=== PATIENT | female | born 1980 | race Caucasian/White ===

== ENCOUNTER 2016-12-23 18:49 | Inpatient (IN) | payer BC ==
[~2016-12-23] VITALS: Ht 167.6 cm; Wt 75.7 kg
[2016-12-23] MEDS ORDERED: LACTATED RINGER'S 1000 ML INJ 1,000 ML IV PRN (20:03)
--- NOTE | 2016-12-23 20:03 | PD ---
HPI Chief Complaint Rupture of membranes Date Seen: Dec 23, 2016 Time Seen: 19:57 Travel History International Travel<30 Days: No Contact w/Intl Traveler<30Days: No Known Affected Area: No History of Present Illness HPI 36-year-old who is at 41 weeks gestation comes in complaining of rupture membranes that occurred at 1645 today. She states the fluid was blood-tinged but mostly clear. Patient complains of some mild cramping but otherwise no other contractions and no vaginal bleeding. Patient states that she's had normal movement and she is group B strep positive Weeks Gestation: 41 Para: 0 : 1 History Past Medical History Medical History: Denies Significant Hx Past Surgical History Narrative Surgical Breast augmentation Family History Family History: Negative Social History Alcohol Use: No Tobacco Use: No Substance Abuse: No Allergies-Medications (Allergen,Severity, Reaction): Coded Allergies: Ciprofloxacin (Verified Allergy, Mild, 12/23/16) Review of Systems Except as stated in HPI: all other systems reviewed are Neg Physical Exam Narrative GENERAL: Well-nourished, well-developed patient. SKIN: Warm and dry. HEAD: Normocephalic and atraumatic. EYES: No scleral icterus. No injection or drainage. ENT: No nasal drainage noted. Mucous membranes pink. Airway patent. NECK: Supple, trachea midline. No JVD. CARDIOVASCULAR: Regular rate and rhythm without murmurs, gallops, or rubs. RESPIRATORY: Breath sounds equal bilaterally. No accessory muscle use. ABDOMEN/GI: Abdomen soft, non-tender, bowel sounds present, no rebound, no guarding Gravid to [39-] weeks size Fundal Height: [-] GENITOURINARY: External Genitalia: intact and normal in appearance BUS glands: [Normal-] Cervix: [-Mid position] Dilatation: [-Fingertip] Effacement: [-50] Station: [-3-] Presentation: [-Vertex] Membranes: ruptured, positive amnisure Uterine Contractions: [-] Irregular every 5-10 minutes FHT's: Category: [1-] Baseline: [-140] Reactive: [-Moderate] Variability: [Moderate-] Decels: [Absent-] EXTREMITIES: No cyanosis or edema. BACK: Nontender without obvious deformity. No CVA tenderness. NEUROLOGICAL: Awake and alert. Motor and sensory grossly within normal limits. Five out of 5 muscle strength in all muscle groups. Normal speech. Data Data Vital Signs Reviewed: Yes Orders Orders Ob (2e) Additional Admit Info (12/23/16 19:24) Group B Strep: Positive MDM Medical Record Reviewed: Yes Plan 36-year-old with premature rupture membranes and positive GBS Will start penicillin prophylaxis cytotec 25mcg Diagnosis Diagnosis: Primary Impression: Premature rupture of membranes Additional Impressions: Positive GBS test 41 weeks gestation of Katey Pierre MD Dec 23, 2016 20:03
[2016-12-23] MEDS ORDERED: OXYTOCIN 30 UNITS-500ML PREMIX 500 ML IV ONE (20:15)
[2016-12-23] MEDS ORDERED: SODIUM CHLORID 0.9% 500 ML INJ 500 ML IV PRN (20:15)
[2016-12-23] MEDS ORDERED: LIDOCAINE HCL 1% 50 ML VIAL INFIL PRN (20:15)
[2016-12-23] MEDS ORDERED: MISOPROSTOL 25 MCG SUPP VAGINAL ONE (20:15)
[2016-12-23] MEDS ORDERED: PENICILLIN G POTASSIUM INJ 5,000,000 UNITS in SODIUM CHLORIDE 0.9% INJ 100 ML IV ONE (20:15)
[2016-12-23] MEDS ORDERED: CITRIC ACID-SODIUM CITRATE LIQ 30 ML UDC PO SCH (20:15)
[2016-12-23] MEDS ORDERED: MINERAL OIL 10 ML VIAL TOPICAL PRN (20:15)
[2016-12-23] MEDS ORDERED: LIDOCAINE HCL 1% 50 ML VIAL I-DERMAL PRN (20:15)
[2016-12-23] MEDS ORDERED: SODIUM CHLOR 0.9% 1000 ML INJ 1,000 ML IV PRN (20:23)
[2016-12-23] MEDS: LACTATED RINGER'S 1000 ML INJ 1,000 ML IV SCH (20:29)
[2016-12-23 21:27] LABS: AUTOMATED NEUTROPHIL # 9.5 TH/MM3 (1.8-7.7); BASOPHIL % 0.3 % (0.0-2.0); EOSINOPHIL # 0.1 TH/MM3 (0-0.4); EOSINOPHIL % 0.5 % (0.0-4.0); HEMATOCRIT 31.7 % (35.0-46.0); HEMO FLAGS DIFF FINAL; LYMPH % 15.6 % (9.0-44.0); MEAN CELL VOLUME 91.1 FL (80.0-100.0); MEAN CORPUSCULAR HEMOGLOBIN 30.8 PG (27.0-34.0); MEAN CORPUSCULAR HGB CONC 33.9 % (32.0-36.0); MONO % 8.4 % (0.0-8.0); NEUT % 75.2 % (16.0-70.0); PLATELET COUNT 183 TH/MM3 (150-450); RED BLOOD COUNT 3.48 MIL/MM3 (4.00-5.30); RED CELL DISTRIBUTION WIDTH 15.3 % (11.6-17.2); WHITE BLOOD COUNT 12.7 TH/MM3 (4.0-11.0)
[2016-12-23 21:30] LABS: BACTERIA, URINE RARE /hpf; BLOOD, URINE NEG (NEG); COMMENT (UR) CULT NOT INDICATED; CULTURE IF INDICATED CULT NOT INDICATED; GLUCOSE,URINE NEG (NEG); KETONE, URINE NEG (NEG); MUCUS URINE FEW /lpf (OCC); NITRITE,URINE NEG (NEG); PH, URINE 6.5 (5.0-8.5); SQUAMOUS EPITHELIAL CELL URINE 1 /hpf (0-5); URINE COLOR LIGHT-YELLOW (YELLW/STRAW)
[2016-12-23 23:17] VITALS: TEMP 97.5
[2016-12-23 23:41] VITALS: BP 107/60; PULSE 60; RESP 18
[2016-12-24] VITALS (61 sets, daily range): BP systolic 92–124; BP diastolic 46–82; PULSE 47–114; RESP 16–20; TEMP 97.6–99.7; O2SAT 98–100
[2016-12-24] MEDS: PENICILLIN G POTASSIUM INJ 2,500,000 UNITS in SODIUM CHLORIDE 0.9% INJ 100 ML IV SCH ×4 (01:09→12:15)
[2016-12-24] MEDS ORDERED: OXYTOCIN 30 UNITS/NS 500ML PREMIX IV SCH (01:15)
[2016-12-24] MEDS ORDERED: ePHEDrine/NS 25 MG/5 ML SYR ONE (03:23)
[2016-12-24] MEDS ORDERED: fentaNYL 2MCG-BUPIV 0.125% INJ 100 ML ONE (03:23)
[2016-12-24] MEDS: LACTATED RINGER'S 1000 ML INJ 1,000 ML IV SCH ×2 (04:03→06:09)
[2016-12-24] MEDS ORDERED: ePHEDrine/NS 25 MG/5 ML SYR IV PRN (04:30)
[2016-12-24] MEDS ORDERED: NO SYSTEM NARCOTICS PRN (04:30)
[2016-12-24] MEDS ORDERED: fentaNYL 2MCG-BUPIV 0.125% 100 ML EPIDURAL SCH (04:30)
[2016-12-24] MEDS ORDERED: DO NOT ADMINISTER ANTICOAGULANTS PRN (04:30)
[2016-12-24] MEDS ORDERED: OXYTOCIN 30 UNITS-500ML PREMIX 500 ML IV SCH (07:45)
--- NOTE | 2016-12-24 07:45 | PD.LABORPN ---
Subjective Subjective comfortable with epidural Objective Vital Signs Vital Signs Date Time Temp Pulse Resp B/P (MAP) Pulse Ox O2 Delivery O2 Flow Rate FiO2 12/24/16 07:12 68 118/64 (82) 12/24/16 07:04 114 109/67 (81) 12/24/16 07:01 88 92/49 (63) 12/24/16 06:54 98.3 12/24/16 06:47 71 106/56 (73) 12/24/16 06:44 18 12/24/16 06:43 73 94/46 (62) 12/24/16 06:30 71 94/46 (62) 12/24/16 06:01 68 109/68 (82) 12/24/16 05:30 72 99/65 (76) 12/24/16 05:05 98.0 18 12/24/16 05:00 69 106/59 (75) 12/24/16 04:43 18 12/24/16 04:37 18 12/24/16 04:33 77 108/70 (83) 12/24/16 04:31 73 12/24/16 04:15 71 107/64 (78) 12/24/16 04:10 75 103/64 (77) 12/24/16 04:05 76 108/65 (79) 12/24/16 04:00 76 100 12/24/16 04:00 71 105/82 (90) 12/24/16 03:56 77 112/76 (88) 12/24/16 03:55 80 100 12/24/16 03:50 82 121/82 (95) 12/24/16 03:50 79 100 12/24/16 03:45 77 12/24/16 03:45 67 119/73 (88) 100 12/24/16 03:41 18 12/24/16 03:40 68 12/24/16 03:40 64 115/72 (86) 100 12/24/16 03:36 61 120/67 (84) 12/24/16 02:18 73 117/79 (92) 12/24/16 02:16 97.6 18 Objective occasional variables good BTBV 5-6/90/-1 EFW 7 pounds pelvis clinically adequate Weeks Gestation: 41 Gest Age Assessed Date: Dec 24, 2016 Gest Age Assessed Time: 07:43 Pt started active labor?: Yes Active labor start date: Dec 24, 2016 Active labor start time: 07:44 Medical induction of labor?: No Artificial rupture of membrane: No Assessment/Plan Assessment and Plan Entering active labor can augment as needed anticipate Dary Stahl MD Dec 24, 2016 07:44
[2016-12-24] MEDS ORDERED: ONDANSETRON HCL 4 MG/2 ML VIAL ONE ×2 (10:31→15:28)
[2016-12-24] MEDS ORDERED: LIDOCAINE HCL 1.5% PF SOLN 20 ML AMP ONE (12:09)
[2016-12-24] MEDS ORDERED: EPIDURAL-DIPHENHYDRAMINE HCL 50 MG/ML VIAL IV PUSH PRN (13:15)
[2016-12-24] MEDS ORDERED: EPIDURAL-NALOXONE HCL 0.4 MG/ML AMP IV PRN (13:15)
[2016-12-24] MEDS ORDERED: EPIDURAL-DIPHENHYDRAMINE HCL 50 MG CAP PO PRN (13:15)
[2016-12-24] MEDS ORDERED: EPIDURAL-DO NOT ADMINISTER ANTICOAGULANTS PRN (13:15)
[2016-12-24] MEDS ORDERED: EPIDURAL-NO SYSTEMIC NARCOTICS PRN (13:15)
--- NOTE | 2016-12-24 14:13 | PD.LABORPN ---
Subjective Subjective exhausted and nauseated Objective Vital Signs Vital Signs Date Time Temp Pulse Resp B/P (MAP) Pulse Ox O2 Delivery O2 Flow Rate FiO2 12/24/16 14:03 20 12/24/16 14:00 61 113/73 (86) 12/24/16 13:58 98.3 12/24/16 13:30 59 112/68 (83) 12/24/16 13:00 56 118/65 (82) 12/24/16 12:30 62 109/66 (80) 12/24/16 12:05 20 12/24/16 12:05 98.4 12/24/16 12:00 64 106/70 (82) 12/24/16 11:30 61 110/71 (84) 12/24/16 11:00 65 93/48 (63) 12/24/16 10:30 66 105/55 (72) 12/24/16 10:00 66 118/65 (82) 12/24/16 09:35 98.0 12/24/16 09:30 79 124/66 (85) 12/24/16 09:00 77 124/67 (86) 12/24/16 08:30 80 108/68 (81) 12/24/16 08:00 77 110/60 (77) 12/24/16 07:48 75 123/70 (87) 12/24/16 07:45 17 12/24/16 07:30 68 121/69 (86) 12/24/16 07:12 68 118/64 (82) 12/24/16 07:04 114 109/67 (81) 12/24/16 07:01 88 92/49 (63) 12/24/16 06:54 98.3 12/24/16 06:47 71 106/56 (73) 12/24/16 06:44 18 12/24/16 06:43 73 94/46 (62) 12/24/16 06:30 71 94/46 (62) Objective 80/-1 assymetric and difficult to assess position strip no with diminished variability and multiple deep decels Weeks Gestation: 41 Gest Age Assessed Date: Dec 24, 2016 Gest Age Assessed Time: 07:43 Pt started active labor?: Yes Active labor start date: Dec 24, 2016 Active labor start time: 07:44 Medical induction of labor?: No Artificial rupture of membrane: No Assessment/Plan Assessment and Plan no cervical change intolerance of contractions lack of descent now decreased BTBV changing strip from category 2 to category 3 discussed indications, procedure and risks with patient and spouse. to OR now. Dary Macario MD Dec 24, 2016 14:13
[2016-12-24] MEDS ORDERED: oxyCODONE/ACETAMINOPHEN 5 MG/325 MG TAB PO PRN ×2 (14:15)
[2016-12-24] MEDS ORDERED: ONDANSETRON HCL 4 MG/2 ML VIAL IV PUSH PRN (14:15)
[2016-12-24] MEDS ORDERED: SIMETHICONE 80 MG CHEWABLE TAB PO PRN (14:15)
[2016-12-24] MEDS ORDERED: OXYTOCIN 30 UNITS-500ML PREMIX 500 ML IV ONE (14:15)
[2016-12-24] MEDS ORDERED: ACETAMINOPHEN 1000 MG/100 ML 100 ML IV ONE (14:15)
[2016-12-24] MEDS ORDERED: SODIUM CHLORIDE 0.9% FLUSH 10 ML FLUSH IV FLUSH PRN (14:15)
[2016-12-24] MEDS ORDERED: ceFAZolin INJ 1,000 MG VIAL ONE (14:18)
[2016-12-24] MEDS ORDERED: OXYTOCIN 10 UNIT/ML AMP ONE (14:19)
[2016-12-24 15:11] LABS: BLOOD GAS BASE EXCESS -4.2 mmol/L (-2-2); BLOOD GAS O2 HGB SATURATION 61 % (90-100); CORD BLOOD GAS HCO3 20 mmol/L (21-29); CORD BLOOD GAS PCO2 35 mmHG (34-78); CORD BLOOD GAS PH 7.38 (7.14-7.42); CORD BLOOD GAS PO2 31 mmHG (3.0-40.0); DRAW SITE CORD BLOOD; STAT NO
[2016-12-24] MEDS ORDERED: OXYTOCIN 30 UNITS-500ML PREMIX 500 ML ONE (15:23)
[2016-12-24] MEDS ORDERED: MORPHINE SULFATE PF 5 MG/10 ML VIAL ONE (15:28)
--- NOTE | 2016-12-24 15:28 | PD.OP ---
Operative Report Date of Surgery: Dec 24, 2016 Preoperative Diagnosis: (1) Persistent occipitoposterior position (2) 41 weeks gestation of (3) Late deceleration of heart rate Postoperative Diagnosis: (1) Persistent occipitoposterior position (2) 41 weeks gestation of Procedure: Primary low transverse section Anesthesia: Epidural Surgeon: Dary Macario MD Hydraulic Tester(s): Cristela Child Resident Surgeon: Merari Eddy MD Operation and Findings: Preoperative Diagnosis: 1. Primary low transverse delivery 2. Persistent occipitoposterior position 3. Category II tracing with occasional late decelerations and decreasing variability 4. Intrauterine at 41-1/7 weeks gestation Postoperative Diagnosis: 1. Primary low transverse delivery 2. Persistent occipitoposterior position 3. Intrauterine at 41-1/7 weeks gestation Procedure Primary low transverse section Anesthesia Epidural Surgeon Dary Macario MD Co-Surgeon Merari Eddy MD Findings Normal female 3590g with Apgars 8 and 8. Normal fallopian tubes, normal ovaries, normal uterus. Complications None. Counts Correct Estimated Blood Loss 500mL Fluids Crystalloids. Disposition The patient tolerated procedure well, went to recovery room in good condition. Procedure in Detail After informed consent was obtained the patient was taken to the operating room where her epidural anesthesia was found to be adequate. A Crump catheter was already in place. She was then prepared and draped in the normal sterile fashion in the dorsal supine position with a leftward tilt. A Pfannenstiel/midline skin incision was then made with the scalpel and carried through to the underlying layer of fascia with bovie blunt dissection. The fascia was incised in the midline and extended laterally with the Nieto scissors. The incision was then grasped with the Sterling clamps, elevated and the underlying rectus muscles dissected off bluntly/sharply with the Nieto scissors. Attention was then turned to the inferior aspect of this incision which, in a similar fashion, was grasped, tented up with the Sterling clamps, and the rectus muscles dissected off bluntly/sharply with the Nieto scissors. The rectus muscles were then in the midline, and the peritoneum identified , tented up, and entered sharply using Nieto scissors and bluntly using manual dissection. The peritoneal incision was then extended superiorly and inferiorly with good visualization of the bladder. A bladder flap was created then the bladder blade was inserted and the lower uterine segment was incised in a transverse fashion with the scalpel. The uterine incision was then extended laterally digitally. Clear fluid was noted and the 's head was noted to be in occiput posterior presentation. The bladder blade was removed. A nuchal cord was reduced and the 's head delivered with the assistance of a Kiwi vacuum without pop-off's. The was delivered atraumatically. Cord clamping was delayed for 45 seconds with active milking of the cord, then the cord was cut and the was handed off the field to the awaiting baby nurse. The placenta was then removed, the uterus exteriorized, and cleared of all clots and debris. The uterine incision was repaired with 0 Chromic in a running fashion. A second layer of the same suture was used in an imbricating fashion to obtain excellent hemostasis. The abdominal cavity was cleaned with normal saline irrigation and a moist lap and the uterus was replaced into the abdomen. The gutters were cleared of all clots and debris and the hysterotomy site was noted to be hemostatic. The muscle was then reapproximated with 0 Vicryl and the fascia was then reapproximated with 0 Vicryl in a running fashion. The subcutaneous tissue was closed with 3-0 Plain and the skin was closed with 4-0 Monocryl in a subcuticular fashion noting excellent hemostasis. The patient tolerated the procedure well. Sponge, lap and needle counts were correct times two. The patient was taken to the recovery room in stable condition. Merari Eddy MD, R3 Dec 24, 2016 15:28
[2016-12-24] MEDS ORDERED: LACTATED RINGER'S 1000 ML INJ 1,000 ML IV SCH (19:13)
[2016-12-24] MEDS ORDERED: SODIUM CHLORIDE 0.9% FLUSH 10 ML FLUSH IV FLUSH SCH (21:00)
[2016-12-25] MEDS ORDERED: OXYTOCIN 30 UNITS-500ML PREMIX 500 ML IV PRN (00:15)
[2016-12-25 00:50] VITALS: RESP 16
[2016-12-25] MEDS: IBUPROFEN 600 MG TAB PO PRN ×3 (03:12→17:14)
[2016-12-25 03:29] VITALS: BP 95/63; PULSE 76; RESP 18; TEMP 99.2
[2016-12-25 04:25] LABS: HEMATOCRIT 28.6 % (35.0-46.0); HEMO FLAGS DIFF FINAL; MEAN CELL VOLUME 92.5 FL (80.0-100.0); MEAN CORPUSCULAR HEMOGLOBIN 30.7 PG (27.0-34.0); MEAN CORPUSCULAR HGB CONC 33.2 % (32.0-36.0); PLATELET COUNT 154 TH/MM3 (150-450); RED BLOOD COUNT 3.09 MIL/MM3 (4.00-5.30); RED CELL DISTRIBUTION WIDTH 15.6 % (11.6-17.2); WHITE BLOOD COUNT 13.5 TH/MM3 (4.0-11.0)
[2016-12-25 04:26] LABS: AUTOMATED NEUTROPHIL # 11.1 TH/MM3 (1.8-7.7); BASOPHIL # 0.1 TH/MM3 (0-0.2); BASOPHIL % 0.4 % (0.0-2.0); EOSINOPHIL % 0.2 % (0.0-4.0); LYMPH % 10.9 % (9.0-44.0); LYMPHOCYTE # 1.5 TH/MM3 (1.0-4.8); MONO % 6.2 % (0.0-8.0); NEUT % 82.3 % (16.0-70.0)
[2016-12-25 08:24] VITALS: BP 87/59; PULSE 63; RESP 16; TEMP 97.6
--- NOTE | 2016-12-25 09:45 | HHI.OB ---
Subjective Post Operative Day: 1 Remarks POD#1, stable,doing well Objective Vitals/I&O Vital Signs Date Time Temp Pulse Resp B/P (MAP) Pulse Ox O2 Delivery O2 Flow Rate FiO2 12/25/16 08:24 63 16 87/59 (68) 12/25/16 08:24 97.6 12/25/16 03:29 99.2 76 18 12/25/16 03:29 95/63 (74) 12/25/16 00:50 16 12/24/16 23:50 68 18 96/68 (77) 12/24/16 23:50 98.7 12/24/16 21:50 16 12/24/16 20:50 16 12/24/16 19:50 54 18 104/67 (79) 12/24/16 19:50 98.5 12/24/16 17:26 60 16 111/70 (84) 12/24/16 17:14 98.4 12/24/16 16:42 99.7 12/24/16 16:19 18 99 12/24/16 16:19 75 119/65 (83) 12/24/16 16:06 98 12/24/16 16:06 77 18 112/56 (74) 12/24/16 15:45 74 18 106/57 (73) 100 12/24/16 15:39 75 12/24/16 15:39 100 12/24/16 15:39 47 18 102/52 (69) 12/24/16 15:30 100/55 (70) 12/24/16 15:20 98.2 90 18 98 12/24/16 14:03 20 12/24/16 14:00 61 113/73 (86) 12/24/16 13:58 98.3 12/24/16 13:30 59 112/68 (83) 12/24/16 13:00 56 118/65 (82) 12/24/16 12:30 62 109/66 (80) 12/24/16 12:05 20 12/24/16 12:05 98.4 12/24/16 12:00 64 106/70 (82) 12/24/16 11:30 61 110/71 (84) 12/24/16 11:00 65 93/48 (63) 12/24/16 10:30 66 105/55 (72) 12/24/16 10:00 66 118/65 (82) Result Diagram: 12/25/16 0409 Objective Remarks GENERAL: Well-nourished, well-developed patient. CARDIOVASCULAR: Regular rate and rhythm without murmurs, gallops, or rubs. RESPIRATORY: Breath sounds equal bilaterally. No accessory muscle use. ABDOMEN/GI: Abdomen soft, non-tender, bowel sounds present. Incision: Clean, dry and intact. Fundus: Firm, non-tender at umbilicus. GENITOURINARY: Light to moderate bleeding. EXTREMITIES: No cyanosis or edema, non-tender, without signs of DVT. Medications and IVs Current Medications Medications (Trade) Dose Ordered Sig/Parish Route Start Time Stop Time Status Last Admin (Xylocaine 1% Inj (50 ml)) 0.1 ml UNSCH X1 PRN I-DERMAL 12/23/16 20:15 12/26/16 20:14 (Bicitra Liq) 30 ml LUNCH COUNTER MANAGER PO 12/23/16 20:15 12/27/16 20:14 (Xylocaine 1% Inj (50 ml)) 10 ml UNSCH X1 PRN INFIL 12/23/16 20:15 12/25/16 20:14 Lactated Ringer's 1,000 ml @ 100 mls/hr Q10H IV 12/24/16 19:13 12/25/16 15:12 12/24/16 20:09 Oxytocin 500 ml @ 100 mls/hr UNSCH X1 PRN IV 12/25/16 00:15 12/26/16 00:14 (NS Flush) 2 ml BID IV FLUSH 12/24/16 21:00 (NS Flush) 2 ml UNSCH PRN IV FLUSH 12/24/16 14:15 (Mylicon Chew) 80 mg QID PRN PO 12/24/16 14:15 (Motrin) 600 mg Q6H PRN PO 12/24/16 14:15 12/25/16 03:12 (Percocet 5-325 Mg) 1 tab Q4H PRN PO 12/24/16 14:15 (Percocet 5-325 Mg) 2 tab Q4H PRN PO 12/24/16 14:15 (M-M-R Ii Inj) 0.5 ml ONCE ONCE SQ 9/13/17 16:00 12/25/16 16:01 (Boostrix Inj) 0.5 ml ONCE ONCE IM 12/25/16 16:00 12/25/16 16:01 (Zofran Inj) 4 mg Q6H PRN IV PUSH 12/24/16 14:15 Miscellaneous Information NO SYSTEMIC NARCOTICS TO BE GIVEN FO... UNSCH PRN .XX 12/24/16 13:15 12/25/16 13:14 (Narcan Inj) 0.4 mg UNSCH PRN IV 12/24/16 13:15 12/25/16 13:14 (Benadryl Inj) 25 mg Q6H PRN IV PUSH 12/24/16 13:15 12/25/16 13:14 (Benadryl) 50 mg Q6H PRN PO 12/24/16 13:15 12/25/16 13:14 Miscellaneous Information ALL NURSING DEPARTMENTS UNSCH PRN .XX 12/24/16 13:15 12/25/16 13:14 Assessment/Plan Assessment and Plan POD#!, Normal post-op recovery, plan D/c day 2 or 3 Discharge Planning ROutine Attending Attestation seen by Lamin Ashford MD Dec 25, 2016 09:45
[2016-12-25] MEDS ORDERED: DIPHTH/TETANUS/ACEL PERTUSSIS (BOOSTER) 0.5 ML VIAL/PFS IM ONE (16:00)
[2016-12-25] MEDS ORDERED: MEASLES, MUMPS, RUBELLA VACCINE 0.5 ML VIAL SQ ONE (16:00)
[2016-12-25] MEDS: DOCUSATE SODIUM 50 MG/SENNA 8.6 MG TAB PO PRN (17:13)
[2016-12-25 19:50] VITALS: BP 96/68; PULSE 67; RESP 18; TEMP 98.1
[2016-12-26] MEDS: IBUPROFEN 600 MG TAB PO PRN ×3 (00:16→16:28)
[2016-12-26 03:50] VITALS: BP 109/68; PULSE 60; RESP 18; TEMP 98
[2016-12-26 08:00] VITALS: BP 113/74; PULSE 65; RESP 16; TEMP 97.6
[2016-12-26] MEDS: DOCUSATE SODIUM 50 MG/SENNA 8.6 MG TAB PO PRN (09:15)
--- NOTE | 2016-12-26 09:17 | HHI.OB ---
Subjective Post Operative Day: 2 Remarks sleeping well breast and bottle mild cramps Objective Vitals/I&O Vital Signs Date Time Temp Pulse Resp B/P (MAP) Pulse Ox O2 Delivery O2 Flow Rate FiO2 12/26/16 08:00 97.6 65 16 113/74 (87) 12/26/16 03:50 98.0 60 18 109/68 (82) 12/25/16 19:50 98.1 67 18 96/68 (77) Result Diagram: 12/25/16 0407 Objective Remarks GENERAL: Well-nourished, well-developed patient. CARDIOVASCULAR: Regular rate and rhythm without murmurs, gallops, or rubs. RESPIRATORY: Breath sounds equal bilaterally. No accessory muscle use. ABDOMEN/GI: Abdomen soft, non-tender, bowel sounds present. Incision: Clean, dry and intact. Fundus: Firm, non-tender at umbilicus. GENITOURINARY: Light to moderate bleeding. EXTREMITIES: No cyanosis or edema, non-tender, without signs of DVT. Medications and IVs Current Medications Medications (Trade) Dose Ordered Sig/Parish Route Start Time Stop Time Status Last Admin (Xylocaine 1% Inj (50 ml)) 0.1 ml UNSCH X1 PRN I-DERMAL 12/23/16 20:15 12/26/16 20:14 (Bicitra Liq) 30 ml TRAFFIC CIRCUIT ENGINEER PO 12/23/16 20:15 12/27/16 20:14 (NS Flush) 2 ml BID IV FLUSH 12/24/16 21:00 (NS Flush) 2 ml UNSCH PRN IV FLUSH 12/24/16 14:15 (Mylicon Chew) 80 mg QID PRN PO 12/24/16 14:15 (Motrin) 600 mg Q6H PRN PO 12/24/16 14:15 12/26/16 09:15 (Percocet 5-325 Mg) 1 tab Q4H PRN PO 12/24/16 14:15 (Percocet 5-325 Mg) 2 tab Q4H PRN PO 12/24/16 14:15 (Zofran Inj) 4 mg Q6H PRN IV PUSH 12/24/16 14:15 (Aida-Colace) 2 tab Q12H PRN PO 12/25/16 17:15 12/26/16 09:15 Assessment/Plan Assessment and Plan POD#m 2 plan for discharge in the morning cricumcision with family practice Discharge Planning ROutine Dary Macario MD Dec 26, 2016 09:17
[2016-12-26] MEDS ORDERED: OXYC1TAB63 PO (09:19)
--- NOTE | 2016-12-26 09:19 | HHI.DCPOC ---
Discharge Care Plan Report Symptoms to Your Doctor -Temperature above 100.5 degrees -Redness, of incision or excessive or foul smelling drainage -Unusual pain or calf pain -Increased vaginal bleeding -Painful or difficulty urinating -Feelings of extreme sadness or anxiety after 2 weeks Goals to Promote Your Health * To prevent worsening of your condition and complications * To maintain your health at the optimal level Directions to Meet Your Goals Take your medications as prescribed Follow your dietary instruction Follow activity as directed Ensure plenty of rest for recovery Drink fluids for hydration Keep your appointments as scheduled Take your immunizations and boosters as scheduled If your symptoms worsen call your PCP, if no PCP go to Urgent Care Center or Emergency Room Smoking is Dangerous to Your Health. Avoid second hand smoke Call the 24-hour crisis hotline for domestic abuse at Dary Macario MD Dec 26, 2016 09:19
[2016-12-26 20:29] VITALS: BP 114/76; PULSE 82; RESP 16; TEMP 97.8
[2016-12-27] MEDS: IBUPROFEN 600 MG TAB PO PRN ×2 (00:20→08:15)
[2016-12-27 07:35] VITALS: BP 140/80; PULSE 56; RESP 18; TEMP 97.9
[2016-12-27 07:50] VITALS: BP 121/80
--- NOTE | 2016-12-27 08:09 | HHI.OB ---
Subjective Post Operative Day: 2 Remarks doing well, pt desires discharge today Objective Vitals/I&O Vital Signs Date Time Temp Pulse Resp B/P (MAP) Pulse Ox O2 Delivery O2 Flow Rate FiO2 12/26/16 20:29 97.8 82 16 114/76 (89) Result Diagram: 12/25/16 0407 Objective Remarks GENERAL: Well-nourished, well-developed patient. CARDIOVASCULAR: Regular rate and rhythm without murmurs, gallops, or rubs. RESPIRATORY: Breath sounds equal bilaterally. No accessory muscle use. ABDOMEN/GI: Abdomen soft, non-tender, bowel sounds present. Incision: Clean, dry and intact. Fundus: Firm, non-tender at umbilicus. GENITOURINARY: Light to moderate bleeding. EXTREMITIES: No cyanosis or edema, non-tender, without signs of DVT. Medications and IVs Current Medications Medications (Trade) Dose Ordered Sig/Parish Route Start Time Stop Time Status Last Admin (Bicitra Liq) 30 ml ACOUSTICAL MATERIAL WORKER PO 12/23/16 20:15 12/27/16 20:14 (NS Flush) 2 ml BID IV FLUSH 12/24/16 21:00 (NS Flush) 2 ml UNSCH PRN IV FLUSH 12/24/16 14:15 (Mylicon Chew) 80 mg QID PRN PO 12/24/16 14:15 (Motrin) 600 mg Q6H PRN PO 12/24/16 14:15 12/27/16 00:20 (Percocet 5-325 Mg) 1 tab Q4H PRN PO 12/24/16 14:15 (Percocet 5-325 Mg) 2 tab Q4H PRN PO 12/24/16 14:15 (Zofran Inj) 4 mg Q6H PRN IV PUSH 12/24/16 14:15 (Aida-Colace) 2 tab Q12H PRN PO 12/25/16 17:15 12/26/16 09:15 Assessment/Plan Assessment and Plan POD#2 plan for discharge today cricumcision with family practice Discharge Planning ROutine Attending Attestation pt seen by Maria De Jesus Kaiser MD Dec 27, 2016 08:09
[2016-12-27] MEDS: DOCUSATE SODIUM 50 MG/SENNA 8.6 MG TAB PO PRN (08:16)
== END 2016-12-27 11:51 | disposition home or self-care (01) | DRG 766 ==
LOC: HOBED 18:49 → H2EB 19:25 → H1EA 12-24 17:12
PROVIDERS: ADMIT Obstetrics & Gynecology; ATTEND Obstetrics & Gynecology
PROC: 10D00Z1 Extraction of Products of Conception, Low, Open Approach (ICD-10-PCS; principal; 2016-12-24)
DX: O42.02 Full-term premature rupture of membranes, onset of labor within 24 hours of rupture (principal); O99.824 Streptococcus B carrier state complicating childbirth; O32.4XX0 Maternal care for high head at term, not applicable or unspecified; Z37.0 Single live birth; Z3A.41 41 weeks gestation of pregnancy; O75.81 Maternal exhaustion complicating labor and delivery; O76 Abnormality in fetal heart rate and rhythm complicating labor and delivery; O69.81X0 Labor and delivery complicated by cord around neck, without compression, not applicable or unspecified; O32.8XX0 Maternal care for other malpresentation of fetus, not applicable or unspecified
CPT/HCPCS: 59025; 81001; 82805; 84112; 85025; 86900; 86901; J0690; J2274; J2405; J2540; J2590; J3010; J7120